=== PATIENT | female | born 2000 | race Caucasian/White ===

== ENCOUNTER → 2021-08-29 13:45 | Outpatient (CLI) | payer OTHER, SELFPAY ==
[2021-08-29 16:13] LABS: Thyroid Stim Hormone (TSH) 1.19 uIU/mL (0.358-3.74)
== END ==
PROVIDERS: PCP Family Medicine; Referring Provider Family Medicine; Visit Provider Family Medicine
DX: F41.9 Anxiety disorder, unspecified (principal)
CPT/HCPCS: 36415; 84443

== ENCOUNTER 2021-09-15 20:20 | Emergency (ER) | payer OTHER, SELFPAY ==
[2021-09-15 20:21] VITALS: BP 151/98; PULSE 85; RESP 16; TEMP 36.6; O2SAT 100; BMI 20.3
--- NOTE | 2021-09-15 21:30 | EKG12_ITS ---
Test Reason : CP Blood Pressure : / mmHG Vent. Rate : 062 BPM Atrial Rate : 062 BPM P-R Int : 114 ms QRS Dur : 086 ms QT Int : 410 ms P-R-T Axes : 065 083 043 degrees QTc Int : 416 ms Normal sinus rhythm Normal ECG Confirmed by LAURYN LOPEZ, JHONNY ([id number]), graphics editor JAVI SNELL ([id number]) on 09/17/2021 9:21:10 AM Referred By: ELIZABETH Confirmed By:JHONNY COMBS MD
[2021-09-15] MEDS: Aspirin 81 MG TAB.CHEW 324 MG PO (21:39)
--- NOTE | 2021-09-15 21:45 | RAD_ITS ---
INDICATION: chest pain EXAMINATION/TECHNIQUE: X-RAY - XR Chest 1 View COMPARISON: None. FINDINGS: LINES/DEVICES: None. LUNGS: Symmetric normal lung volumes. No airspace opacity or abnormal interstitial pattern. No nodule or mass. No pleural effusion or pneumothorax. Punctate calcific density projecting over the left lung apex suggesting tiny calcified granuloma. MEDIASTINUM AND CARDIOVASCULAR STRUCTURES: Normal size and contour of the cardiomediastinal silhouette. No evidence of pulmonary vascular congestion. BONES AND SOFT TISSUES: No abnormality within limits of the exam. RAD/Chest 1 View (Portable) IMPRESSION: 1. No radiographic evidence of acute cardiopulmonary disease. Electronically Signed: Jesús Hawthorne DO at 22:54 EDT Tel , Service support ,
[2021-09-15 21:51] LABS: Basophil# 0.04 X10^3/uL; Basophil% 0.7 % (0-1); Eosinophil# 0.06 X10^3/uL; Eosinophils% 1.1 % (0-5); Hematocrit 40.4 % (37-47); Hemoglobin 13.8 g/dL (12.0-15.0); Lymphocyte % 21.3 % (19-41); Mean Corp Hgb Conc 34.2 g/dL (32-36); Mean Corpuscular Hgb 30.3 pg (27.0-32.0); Mean Corpuscular Volume 88.8 fL (81-99); Monocyte# 0.38 X10^3/uL; Monocyte% 6.7 % (0-10); NRBC Flagged by Analyzer 0 % (0-5); Neutrophil # 3.95 X10^3/uL (2.7-7.7); Neutrophil % 70.2 % (47-70); Platelet Count 206 K/mm3 (150-450); RBC Distribution Width CV 11.9 % (11.6-14.6); RBC Distribution Width SD 38.4 fl (35.1-43.9); Red Blood Count 4.55 M/mm3 (4.2-5.4); White Blood Count 5.6 K/mm3 (4.4-11.0)
[2021-09-15 22:08] LABS: Anion Gap 8 (5-15); BUN 19 mg/dL (7-18); BUN/Creat Ratio 20.4 RATIO (10-20); Calcium,Total 9.1 mg/dL (8.5-10.1); Chloride 106 mmol/L (98-107); Creatinine, Serum 0.93 mg/dL (0.55-1.02); EST Glomerular Filtration Rate 80 mL/min (>60); Est Glom Filt Rate - Afr Amer 97 mL/min (>60); Estimated Creatinine Clearance 89.08 ml/min; Glucose 80 mg/dL (74-106); Potassium 3.9 mmol/L (3.5-5.1); Sodium Level 139 mmol/L (136-145); Troponin-I HS 5 pg/mL (3.0-54.0)
--- NOTE | 2021-09-15 22:23 | EDS_ITS ---
HPI History of Present Illness Chief Complaint: Chest Pain Informant: patient Onset/Context/Timing Onset: Days (3) Activity at onset: gradual Timing: Intermittent and Lasts (1 to 2 hours) Quality: Positive for Pressure and - (Heat) Location: Substernal Worsened By: Nothing Relieved By: Nothing Associated Symptoms: Positive for Diaphoresis, Lightheadedness and Palpitations; Negative for Nausea, Vomiting, Dyspnea, Cough, Fever and Acid Reflux Narrative Narrative: Patient presents with chest pain that has been intermittent over the last 3 days. Patient states she saw her primary care physician for this. Patient was started on Zoloft 1 week ago. Patient states she was prescribed 50 mg but has only been taking 25 mg daily. Patient states that her symptoms lasted approximately 1 to 2 hours and then resolved. Patient describes her pain as a pressure and burning pain. Patient states it is over the substernal area. Patient states nothing makes it worse and nothing makes it better. Patient admits to some diaphoresis with the pain. Patient states she feels lightheaded with the pain. Patient also admits to some palpitations where she feels like her heart is beating fast. Patient denies any cardiac or PE risk factors. CVD Risk Factors: Negative for Hypertension, Diabetes, Hypercholesterolemia, Fam ishmael History 1' </=55 and Smoking PE Risk Factors: Negative for Recent Travel/Surgery, Recent Immobilization, Prior DVT or PE, Cancer and OCP + Smoking + >/=35 PFSH PFSH Medical History no medical history no medical history Home Medications sertraline 25 mg PO DAILY 09/15/21 [History Last Taken Unknown] Allergy/AdvReac Type Severity Reaction Status Date / Time No Known Allergies Allergy Verified 09/15/21 20:21 Surgical History no surgical history no surgical history Social History Smoking Status: Never smoker ROS ROS ED Constitutional Constitutional ED: Denies chills or fever(s) Eyes Eyes: Denies blurry vision or change in vision ENT ENT ED: Denies rhinorrhea or sore throat Cardiovascular Cardiovascular: Reports chest pain and palpitations Respiratory/Chest Respiratory/Chest: Denies cough or dyspnea Gastrointestinal Gastrointestinal: Reports nausea; Denies abdominal pain or vomiting Genitourinary Genitourinary ED: Denies dysuria or hematuria Musculoskeletal Musculoskeletal: Denies back pain or neck pain Integumentary Denies abscess or rash Neurologic Neurologic: Denies headache(s) or weakness Allergic/Immunologic Allergic/Immunologic ED: Denies mouth swelling or urticaria EXAM Physical Exam Const Vital Signs: 09/15/21 20:21 09/15/21 21:35 09/15/21 22:47 Temperature 97.8 F Temperature Source Temporal Pulse Rate 85 82 Respiratory Rate 16 Blood Pressure 151/98 H 114/76 Blood Pressure Mean 115 88 Pulse Ox 100 Oxygen Delivery Method Room Air 09/16/21 00:17 Temperature Temperature Source Pulse Rate 70 Respiratory Rate 16 Blood Pressure 123/78 H Blood Pressure Mean 93 Pulse Ox Oxygen Delivery Method Positive well nourished and well developed General Appearance ED: well developed HEENT normocephalic and atraumatic Eyes PERRL and EOMs intact bilaterally Neck supple and no JVD Chest Wall palpation of chest normal Resp normal respiratory effort and clear to auscultation bilaterally Effort and Inspection: Negative for respiratory distress Cardio regular rate, regular rhythm and no murmurs GI normal to inspection, nondistended, normoactive bowel sounds, soft to palpation, non-tender and non-distended Extremity normal to inspection General Extremety ED: Negative for edema or tenderness General Extremity: Negative for edema Neuro oriented x3, CN's II-XII intact bilaterally and no sensory deficits noted Sensorium / Orientation: awake and alert Motor Exam: strength 5/5 throughout Psych mental status grossly normal Heart Score History: Slightly/Non-Suspicious ECG: Normal Age: </= 45 years Risk Factors: No Risk Factors Troponin: </= Normal Limit Score: 0 MDM MDM MDM Narrative Medical decision making narrative: Patient was given aspirin here. EKG was obtained. On my interpretation, it showed a normal sinus rhythm with a rate of 62. UT interval, QRS interval, and QTc intervals were all normal. [place] was normal. There are no acute ST or T wave changes. Portable 1 view chest x-ray was obtained. On my interpretation, lung castorena are clear. There is normal cardiac silhouette. Bony thorax is normal. There is no acute process noted. Radiologist also interpreted the x-ray and agrees. CBC, basic metabolic profile, and high-sensitivity troponin were obtained were all within normal limits. 2-hour repeat high-sensitivity troponin was obtained. This was also normal. Patient was advised of her findings. Patient has a HEART score of 0. Patient was advised that this is low risk for acute cardiac event. Patient was instructed to follow-up with her primary care physician in 5 to 7 days. Patient understood and was agreeable with the plan. All questions were answered. Lab Data Attestation: I reviewed the patient's lab results. Labs: Laboratory Results - last 24 hr 09/15/21 09/15/21 21:45 21:45 WBC 5.6 RBC 4.55 Hgb 13.8 Hct 40.4 MCV 88.8 MCH 30.3 MCHC 34.2 RDW Std Deviation 38.4 RDW Coeff of Cassandra 11.9 Plt Count 206 MPV 9.0 Immature Gran % (Auto) 0.000 Neut % (Auto) 70.2 H Lymph % (Auto) 21.3 [place] % (Auto) 6.7 Eos % (Auto) 1.1 Baso % (Auto) 0.7 Absolute Neuts (auto) 4.0 Absolute Lymphs (auto) 1.20 Nucleated RBC % 0 Sodium 139 Potassium 3.9 Chloride 106 Carbon Dioxide 25.0 Anion Gap 8 BUN 19 H Creatinine 0.93 Estim Creat Clear Calc 89.08 Est GFR (MDRD) Af Amer 97 Est GFR (MDRD) Non-Af 80 BUN/Creatinine Ratio 20.4 H Glucose 80 Calcium 9.1 Troponin I High Sens 5 Radiography Chest X-Ray - ED: 1 View, Read by ED Physician, Read by Radiologist and Normal Diagnostic Testing: Clinical Impression(s) from Imaging Studies Chest X-Ray 09/15/21 21:45 IMPRESSION: 1. No radiographic evidence of acute cardiopulmonary disease. Electronically Signed: Jesús Hawthorne DO at 22:54 EDT Tel , Service support , EKG Initial EKG: Attestation: I personally reviewed and interpreted this EKG as follows: Interpretation: Sinus Rhythm (62) and No Acute Injury Pattern Discharge Plan Triage Chief Complaint: Chest Pain ED Provider: Germán Garcia Dx/Rx/DC Orders Clinical Impression: Chest pain Instructions: ED Chest Pain, Uncertain Cause Prescriptions: No Action sertraline 50 mg tablet 25 mg PO DAILY RF: 0 Primary Care Provider: Derek Boyd Referrals: Derek Boyd MD [Primary Care Provider] - 5-7 Days Disposition Disposition: Home, Self Care
[2021-09-15 22:47] VITALS: BP 114/76; PULSE 82
[2021-09-16 00:17] VITALS: BP 123/78; PULSE 70; RESP 16
[2021-09-16 00:38] LABS: Troponin-I HS 4 pg/mL (3.0-54.0)
[2021-09-16 01:12] VITALS: BP 112/84; PULSE 67; RESP 18; O2SAT 100
== END 2021-09-16 01:12 | disposition home or self-care (01) ==
PROVIDERS: Emergency Provider Emergency Medicine; PCP Family Medicine
DX: R07.89 Other chest pain (principal); R61 Generalized hyperhidrosis; R42 Dizziness and giddiness; R00.2 Palpitations; R11.0 Nausea
CPT/HCPCS: 71045; 80048; 84484; 85025; 93005; 99285; A4216